=== PATIENT | female | born 1950 | race Caucasian/White ===

== ENCOUNTER 2020-05-21 13:58 | Emergency (ER) | payer MEDICARE ==
[~2020-05-21] VITALS: Ht 175.3 cm; Wt 68.2 kg
[2020-05-21 14:07] VITALS: TEMP 97.8
[2020-05-21] MEDS ORDERED: NORCO 325 MG-51 TAB PO (14:53)
[2020-05-21] MEDS ORDERED: COREG 6.256.25 MG/TA PO (14:54)
[2020-05-21] MEDS ORDERED: ELIQUIS 5MG PO (14:54)
[2020-05-21] MEDS ORDERED: LIPITOR 40MG TA40 MG PO (14:54)
[2020-05-21] MEDS ORDERED: ZOLOFT 100MG100 MG PO (14:55)
[2020-05-21] MEDS ORDERED: PRINIVIL20 MG PO (14:55)
[2020-05-21] MEDS ORDERED: LEVOXYL0.075 MG PO (14:55)
[2020-05-21] MEDS ORDERED: KEPPRA1000 MG PO (14:56)
[2020-05-21 16:50] VITALS: BP 142/81; PULSE 81
== END 2020-05-21 16:50 | disposition home or self-care (01) ==
LOC: COL.ER 13:58
DX: S93.401A Sprain of unspecified ligament of right ankle, initial encounter (principal); I10 Essential (primary) hypertension; I25.10 Atherosclerotic heart disease of native coronary artery without angina pectoris; E78.5 Hyperlipidemia, unspecified; E03.9 Hypothyroidism, unspecified; G40.909 Epilepsy, unspecified, not intractable, without status epilepticus; E78.00 Pure hypercholesterolemia, unspecified; F32.9 Major depressive disorder, single episode, unspecified; Z79.02 Long term (current) use of antithrombotics/antiplatelets; Z79.890 Hormone replacement therapy; Z86.73 Personal history of transient ischemic attack (TIA), and cerebral infarction without residual deficits; W19.XXXA Unspecified fall, initial encounter

== ENCOUNTER 2020-07-23 20:08 | Emergency (ER) | payer OTHER ==
[~2020-07-23] VITALS: Ht 175.3 cm; Wt 68.2 kg
[~2020-07-23 20:08] MED LIST: COREG 6.256.25 MG/TA PO; ELIQUIS 5MG PO; KEPPRA1000 MG PO; LEVOXYL0.075 MG PO; LIPITOR 40MG TA40 MG PO; NORCO 325 MG-51 TAB PO; PRINIVIL20 MG PO; ZOLOFT 100MG100 MG PO
[2020-07-23 20:15] VITALS: TEMP 97.1
[2020-07-23 20:45] LABS: COLLECTION METHOD CLEAN CATCH
[2020-07-23 21:12] LABS: MUCOUS Present /lpf; PH 5 (5-8); SQUAMOUS EPITHELIAL 0-2 /hpf; URINE APPEARANCE Hazy; URINE BACTERIA Rare /hpf; URINE BILIRUBIN Negative (NEGATIVE); URINE BLOOD Negative (NEGATIVE); URINE COLOR Yellow; URINE GLUCOSE Negative (NEGATIVE); URINE KETONE Negative (NEGATIVE); URINE LEUKOCYTE ESTERASE 2+ (NEGATIVE); URINE NITRATE Positive (NEGATIVE); URINE PROTEIN(semi-quant) Negative (NEGATIVE); URINE RBC 0-2 /hpf; URINE UROBILINOGEN Negative (NEGATIVE)
[2020-07-23] MEDS ORDERED: OMNICEF 300MG300 MG PO (21:18)
[2020-07-23 21:40] VITALS: BP 126/79; PULSE 61
== END 2020-07-23 21:40 | disposition home or self-care (01) ==
LOC: COL.ER 20:08
PROVIDERS: Nurse Practitioner Primary Care
DX: N39.0 Urinary tract infection, site not specified (principal); I10 Essential (primary) hypertension; E78.5 Hyperlipidemia, unspecified; F32.9 Major depressive disorder, single episode, unspecified; I48.91 Unspecified atrial fibrillation; Z86.73 Personal history of transient ischemic attack (TIA), and cerebral infarction without residual deficits; Z79.01 Long term (current) use of anticoagulants; Z79.899 Other long term (current) drug therapy